=== PATIENT | male | born 1965 | race Caucasian/White ===

== ENCOUNTER 2017-04-26 05:44 | Day surgery (SDC) | payer BC ==
[2017-04-26] MEDS ORDERED: Ketamine HCl 50 MG/ML IV ONE (05:45)
[2017-04-26] MEDS ORDERED: DIPRIVAN 200 MG/20 ML IV ONE (05:45)
[2017-04-26] MEDS ORDERED: Lactated Ringers 1,000 ML IV SCH (07:00)
--- NOTE | 2017-04-26 08:54 | OP ---
SURGERY DATE/TIME: 04/26/2017822 PREOPERATIVE DIAGNOSIS: Screening exam. POSTOPERATIVE DIAGNOSIS: Normal colon. PROCEDURE: Colonoscopy. SURGEON: Dr. Ibrahim. ANESTHESIA: Medications were given by the anesthesia department. HISTORY: The patient is a52 year old white male patient now presenting for screening colonoscopy. The patient was appraised of the risks of the procedure including the risk of perforation, phlebitis, untoward reaction to medication, bleeding or missed lesions. The patient verbalized his understanding and desired to have the procedure performed. DESCRIPTION OF PROCEDURE: The patient was given the medications by the anesthesia department. He had continuous pulse oximetry, ECG monitoring, intermittent blood pressure monitoring and tidal CO2 monitoring during the examination. He was placed in left lateral decubitus position. A digital rectal examination was performed and revealed normal anal sphincter tone, no masses and normal prostate. The flexible Olympus pediatric colonoscope was used to intubate the rectum. A view of the colon was developed sequentially to the cecum. Upon insertion and withdrawal, including a retroflex view in the rectum, no mucosal lesions were encountered. The scope was removed from the patient who tolerated the procedure well and was sent back to OP recovery in good condition. The prep was noted to be fair to at times poor but we were able to adequately evaluate the colon for polyps.
[2017-04-26 09:27] VITALS: O2SAT 98
[2017-04-26 09:32] VITALS: BP 140/98; PULSE 78
== END 2017-04-26 09:35 | disposition home or self-care (01) ==
LOC: SDC 05:44
PROVIDERS: ATTEND Family Medicine
PROC: 0DJD8ZZ Inspection of Lower Intestinal Tract, Via Natural or Artificial Opening Endoscopic (ICD-10-PCS; principal; 2017-04-26)
DX: Z12.11 Encounter for screening for malignant neoplasm of colon (principal); E11.9 Type 2 diabetes mellitus without complications; I10 Essential (primary) hypertension
CPT/HCPCS: 00810; 82962; J2704

== ENCOUNTER 2022-09-28 05:45 | Day surgery (SDC) | payer BC ==
[2022-09-28] MEDS ORDERED: Lactated Ringers 1,000 ML IV SCH (07:00)
[2022-09-28] MEDS ORDERED: DIPRIVAN 200 MG/20 ML IV ONE ×2 (07:51→08:15)
[2022-09-28] MEDS ORDERED: Versed 2 MG/2 ML Injection ONE (07:52)
[2022-09-28] MEDS ORDERED: SUBLIMAZE 100 MCG/2 ML ONE (07:59)
[2022-09-28 09:23] VITALS: BP 138/85; PULSE 65; O2SAT 95
--- NOTE | 2022-09-28 09:37 | OP ---
SURGERY DATE: 09/28/2022 SURGERY TIME: 754 PREOPERATIVE DIAGNOSIS: 1. SCREENING EXAM. 2. HISTORY OF COLON POLYPS. POSTOPERATIVE DIAGNOSIS: 1. NORMAL EXAM. PROCEDURE: 1. Colonoscopy. SURGEON: Dr. Ibrahim. ANESTHESIA: MAC. Medications given by the Anesthesia Department. BRIEF HISTORY: The patient is a 57 y/o WM patient presenting for colonoscopic evaluation. The patient reports previous history of 3 previous colonoscopies, 2 of which had polyps removed. The patient was felt to need to have endoscopic evaluation. He was described the risks of the procedure including the risk of perforation, phlebitis, untoward reaction to medication, bleeding, and missed lesions. The patient verbalized his understanding and desired to have the procedure performed. DESCRIPTION OF PROCEDURE: The patient was given the medications by the Anesthesia Department. He had continuous pulse oximetry, ECG monitoring, and intermittent BP monitoring during the examination. He was placed in the left lateral decubitus position. A digital rectal examination was performed and revealed normal anal sphincter tone and no masses. The flexible Olympus pediatric colonoscope was used to intubate the rectum. A view of the colon was developed sequentially to the cecum. Upon insertion and withdrawal, including a retroflex view in the rectum, no mucosal lesions were encountered. The scope was removed from the patient who tolerated the procedure well and was sent back to OP recovery in good condition. The prep was noted to be fair.
== END 2022-09-28 09:34 | disposition home or self-care (01) ==
LOC: SDC 05:45
PROVIDERS: ATTEND Family Medicine
DX: Z09 Encounter for follow-up examination after completed treatment for conditions other than malignant neoplasm (principal); Z86.010 Personal history of colon polyps; E11.9 Type 2 diabetes mellitus without complications
CPT/HCPCS: 82947; J2250; J2704; J3010

== ENCOUNTER 2024-08-13 16:39 | Emergency (ER) | payer BC ==
[2024-08-13 16:51] VITALS: TEMP 97.4
[2024-08-13] MEDS ORDERED: TORAdol 30 mg Injection ONE (17:31)
[2024-08-13] MEDS: TORAdol 30 mg Injection IV ONE (17:34)
[2024-08-13] MEDS ORDERED: DUONEB 0.5-3 MG/3 ml Neb IH ONE (17:44)
[2024-08-13] MEDS: DUONEB 0.5-3 MG/3 ml Neb IH ONE (17:47)
[2024-08-13 17:59] LABS: Absolute Neutrophil Ct (ANC) 6.75 x10^3/uL (1.78-5.38); BASOPHIL % 0.6 % (0.2-1.2); Basophil (Absolute #) 0.05 x10^3/uL (0.01-0.08); Eosinophil % 0.1 % (0.8-7.0); Eosinophil (Absolute #) 0.01 x10^3/uL (0.04-0.54); Hematocrit 51.2 % (40.1-51.0); Hemoglobin 17.6 g/dL (13.7-17.5); IMMATURE GRAN # 0.19 x10^3u/L (0.001-0.031); IMMATURE GRAN % 2.2 % (0.001-0.429); Lymphocyte (Absolute #) 0.59 x10^3/uL (1.32-3.57); Mean Cell Volume 89.5 fL (79.0-92.2); Mean Corpuscular Hemoglobin 30.8 pg (25.7-32.2); Mean Corpuscular Hgb Concent. 34.4 g/dL (32.3-36.5); Mean Platelet Volume 10.6 fL (9.4-12.4); Monocyte (Absolute #) 0.87 x10^3/uL (0.30-0.82); Monocytes % 10.3 % (5.3-12.2); Neutrophil % 79.8 % (34.0-67.9); Platelet Count 144 x10^3/uL (163-337); Red Blood Count 5.72 x10^6/uL (4.63-6.08); Red Cell Distribution Width 12.9 % (11.6-14.4); White Blood Count 8.5 x10^3/uL (4.23-9.07)
[2024-08-13 18:13] LABS: ALBUMIN 4.6 g/dL (3.5-5.0); ANION GAP 16.8 MEQ/L (5-15); BILIRUBIN,TOTAL 2.1 mg/dL (0.2-1.3); Calcium 8.9 mg/dL (8.4-10.2); Creatinine 1 1.09 mg/dL (0.66-1.25); EST GLOMERULAR FILTRATION RATE 78.7 ML/MIN; MAGNESIUM 1.9 mg/dL (1.6-2.3); Potassium 4.6 mmol/L (3.5-5.1); Total Protein 7.7 g/dL (6.3-8.2)
[2024-08-13] MEDS ORDERED: Sodium Chloride 0.9% 1000 ML 1,000 ML ONE (18:31)
[2024-08-13] MEDS ORDERED: solu-MEDROL ONE (18:31)
[2024-08-13] MEDS ORDERED: Sterile H2O 10 ml IJ ONE (18:31)
[2024-08-13] MEDS: solu-MEDROL 125 MG, Sterile H2O 10 ml 2 ML IV ONE (18:35)
[2024-08-13] MEDS: Sodium Chloride 0.9% 1000 ML 1,000 ML IV STA (18:35)
[2024-08-13 18:39] LABS: INFLUENZA B NEGATIVE (NEGATIVE); RESPIRATORY SYNCTIAL VIRUS NEGATIVE (NEGATIVE); SARS-CoV-2 Xpert Express NEGATIVE (NEGATIVE)
--- NOTE | 2024-08-13 18:39 | ERPHSYRPT ---
- History of Present Illness Time Seen by Provider: 08/13/24 16:41 Source: patient, family Exam Limitations: no limitations Patient Subjective Stated Complaint: PT HERE FOR SOB FOR A COUPLE DAYS NOW, COUGH, ACHES. Triage Nursing Assessment: PT ALERT, WALKED IN, RESP EASY, OCC COUGH, CHEST CLEAR, ABD SOFT, NO EDEMA NOTED, Physician History: 59 years old male presented in the ER with complains of aches and pains all ove r, sinus/nasal congestion, cough productive of yellow-green sputum for the last 2 to 3 days with progressive worsening. Patient is having coughing spells with feeling shortness of breath. Because of repeated coughing having generalized chest soreness and low back pain. Has nausea and dry heaving with no vomiting. had similar symptoms. Does have loose stool as well. Subjective feeling of fever and chills. Allergies/Adverse Reactions: No Known Drug Allergies Allergy (Verified 08/13/24 16:41) Hx Tetanus, Diphtheria Vaccination/Date Given: Yes (UNKNOWN) Hx Influenza Vaccination/Date Given: No Hx Pneumococcal Vaccination/Date Given: No Immunizations Up to Date: Yes Travel Risk - International Travel Have you traveled outside of the country in past 3 weeks: No - Emerging Infectious Disease Are you exhibiting symptoms associated with any current EIDs: Yes Symptoms: Cough: New Onset, Shortness of Breath - Review of Systems Constitutional: Fever, Chills, Fatigue, Weakness Eyes: No Symptoms Ears, Nose, & Throat: Nose Congestion, Throat Swelling Respiratory: Cough Cardiac: No Symptoms Abdominal/Gastrointestinal: Nausea, Diarrhea Genitourinary Symptoms: No Symptoms Musculoskeletal: Back Pain, Myalgias Neurological: Headache Endocrine: No Symptoms Hematologic/Lymphatic: No Symptoms Immunological/Allergic: No Symptoms - Past Medical History Pertinent Past Medical History: Yes Neurological History: TIA ENT History: No Pertinent History Cardiac History: Aneurysm, High Cholesterol, Hypertension Respiratory History: No Pertinent History Endocrine Medical History: Diabetes Type II Musculoskeletal History: No Pertinent History GI Medical History: No Pertinent History History: No Pertinent History Psycho-Social History: No Pertinent History Male Reproductive Disorders: No Pertinent History Other Medical History: 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 - Past Surgical History Past Surgical History: No Neuro Surgical History: No Pertinent History Cardiac: No Pertinent History Respiratory: No Pertinent History Gastrointestinal: No Pertinent History Genitourinary: No Pertinent History Musculoskeletal: No Pertinent History Male Surgical History: No Pertinent History - Social History Smoking Status: Never smoker Exposure to second hand smoke: No Drug Use: none Patient Lives Alone: No - Social Determinants of Health Will the patient participate in the screening: Declined to provide - Nursing Vital Signs Nursing Vital Signs: Initial Vital Signs Temperature 97.4 F 08/13/24 16:49 Pulse Rate 87 08/13/24 16:49 Respiratory Rate 18 08/13/24 16:49 Blood Pressure 190/128 08/13/24 16:49 O2 Sat by Pulse Oximetry 96 08/13/24 16:49 Pain Scale Pain Intensity 4 - Physical Exam General Appearance: no apparent distress, alert Eye Exam: PERRL/EOMI Ears, Nose, Throat Exam: moist mucous membranes, pharyngeal erythema Neck Exam: normal inspection, non-tender, supple, full range of motion Respiratory Exam: normal breath sounds, lungs clear Cardiovascular Exam: regular rate/rhythm, normal heart sounds Gastrointestinal/Abdomen Exam: soft, normal bowel sounds, No tenderness, No rebound Back Exam: normal inspection, normal range of motion Extremity Exam: normal inspection, normal range of motion Neurologic Exam: alert, oriented x 3, cooperative, configuration management consultant II-XII nml as tested Skin Exam: normal color SpO2 Interpretation: normal SpO2: 96 O2 Delivery: Room Air - Course EKG Interpreted by Me: RATE ([id number]), Sinus Rhythm, Left [place] Deviation, NORMAL INTERVALS, NORMAL QRS Ordered Tests: Active Orders 24 hr Category Date Time Status CHEST 1 VIEW (PORTABLE) Stat Exams 08/13/24 16:57 Taken CBC W DIFF Stat Lab 08/13/24 17:39 Completed CMP Stat Lab 08/13/24 18:00 Completed Lactic Acid Stat Lab 08/13/24 17:45 Completed MAGNESIUM Stat Lab 08/13/24 18:00 Completed TROPONIN Q4H Lab 08/13/24 18:00 Completed Respiratory Therapy Assessment DAILY RT 08/13/24 17:50 Completed Medication Summary Discontinued Medications Generic Name Dose Route Start Last Admin Trade Name Freq PRN Reason Stop Dose Admin Albuterol/Ipratropium 3 ml 08/13/24 17:28 08/13/24 17:47 Ipratropium/Albuterol Sulfate 3 Ml Ampul.Neb IH 08/13/24 17:29 3 ml STAT ONE Administration Albuterol/Ipratropium Confirm 08/13/24 17:44 Ipratropium/Albuterol Sulfate 3 Ml Ampul.Neb Administered 08/13/24 17:45 Dose 3 ml IH .STK-MED ONE Methylprednisolone Sodium 0 mg 08/13/24 18:24 08/13/24 18:35 Succinate 125 mg/ Sterile IV 08/13/24 18:25 125 mg Water 2 ml STAT ONE Administration Sodium Chloride 1,000 mls @ 999 mls/hr 08/13/24 18:23 08/13/24 18:35 Sodium Chloride 0.9% 1000 Ml IV 08/13/24 19:23 999 mls/hr .Q1H1M STA Administration Sodium Chloride Confirm 08/13/24 18:31 Sodium Chloride 0.9% 1000 Ml Administered 08/13/24 18:32 Dose 1,000 mls @ ud .ROUTE .STK-MED ONE Ketorolac Tromethamine 30 mg 08/13/24 17:28 08/13/24 17:34 Ketorolac Tromethamine 30 Mg/Ml Inj IV 08/13/24 17:29 30 mg STAT ONE Administration Ketorolac Tromethamine Confirm 08/13/24 17:31 Ketorolac Tromethamine 30 Mg/Ml Inj Administered 08/13/24 17:32 Dose 30 mg .ROUTE .STK-MED ONE Methylprednisolone Sodium Succinate Confirm 08/13/24 18:31 Methylprednis Sod Succ 125 Mg/2 Ml Vial Administered 08/13/24 18:32 Dose 125 mg .ROUTE .STK-MED ONE Oseltamivir Phosphate 75 mg 08/13/24 18:53 08/13/24 18:58 Oseltamivir 75 Mg Cap PO 08/13/24 18:54 75 mg STAT ONE Administration Oseltamivir Phosphate Confirm 08/13/24 18:56 Oseltamivir 75 Mg Cap Administered 08/13/24 18:57 Dose 75 mg PO .STK-MED ONE Sterile Water Confirm 08/13/24 18:31 Water For Injection,Sterile 10 Ml Vial Administered 08/13/24 18:32 Dose 10 ml IJ .STK-MED ONE Lab/Rad Data: Laboratory Result Diagrams 08/13/24 17:39 08/13/24 18:00 Laboratory Results 08/13/24 08/13/24 08/13/24 Range/Units 18:00 18:00 17:56 WBC (4.23-9.07) x10^3/uL RBC (4.63-6.08) x10^6/uL Hgb (13.7-17.5) g/dL Hct (40.1-51.0) % MCV (79.0-92.2) fL MCH (25.7-32.2) pg MCHC (32.3-36.5) g/dL RDW (11.6-14.4) % Plt Count (163-337) x10^3/uL MPV (9.4-12.4) fL Gran % (34.0-67.9) % Immature Gran % (Auto) (0.001-0.429) % Nucleat RBC Rel Count (0.00-0.2) % Eos # (Auto) (0.04-0.54) x10^3/uL Immature Gran # (Auto) (0.001-0.031) x10^3u/L Absolute Lymphs (auto) (1.32-3.57) x10^3/uL Absolute Monos (auto) (0.30-0.82) x10^3/uL Absolute Nucleated RBC (0.00-0.012) x10^3u/L Lymphocytes % (21.8-53.1) % Monocytes % (5.3-12.2) % Eosinophils % (0.8-7.0) % Basophils % (0.2-1.2) % Absolute Granulocytes (1.78-5.38) x10^3/uL Basophils # (0.01-0.08) x10^3/uL Sodium 132 L (135-145) mmol/L Potassium 4.6 (3.5-5.1) mmol/L Chloride 94 L (98-107) mmol/L Carbon Dioxide 26 (22-30) mmol/L Anion Gap 16.8 H (5-15) MEQ/L BUN 14 (9-20) mg/dL Creatinine 1.09 (0.66-1.25) mg/dL Estimated GFR 78.7 ML/MIN Glucose 248 H (74-106) mg/dL Lactic Acid (0.4-2.0) Calcium 8.9 (8.4-10.2) mg/dL Magnesium 1.9 (1.6-2.3) mg/dL Total Bilirubin 2.10 H (0.2-1.3) mg/dL AST 74 H (17-59) U/L ALT 61 H (0-50) U/L Alkaline Phosphatase 65 (38-126) U/L Troponin I < 0.012 (0.000-0.033) ng/mL Serum Total Protein 7.7 (6.3-8.2) g/dL Albumin 4.6 (3.5-5.0) g/dL Influenza Type A Ag POSITIVE A (NEGATIVE) Influenza Type B Ag NEGATIVE (NEGATIVE) RSV (PCR) NEGATIVE (NEGATIVE) SARS-CoV-2 (PCR) NEGATIVE (NEGATIVE) 08/13/24 08/13/24 Range/Units 17:45 17:39 WBC 8.5 (4.23-9.07) x10^3/uL RBC 5.72 (4.63-6.08) x10^6/uL Hgb 17.6 H (13.7-17.5) g/dL Hct 51.2 H (40.1-51.0) % MCV 89.5 (79.0-92.2) fL MCH 30.8 (25.7-32.2) pg MCHC 34.4 (32.3-36.5) g/dL RDW 12.9 (11.6-14.4) % Plt Count 144 L (163-337) x10^3/uL MPV 10.6 (9.4-12.4) fL Gran % 79.8 H (34.0-67.9) % Immature Gran % (Auto) 2.2 H (0.001-0.429) % Nucleat RBC Rel Count 0.0 (0.00-0.2) % Eos # (Auto) 0.01 L (0.04-0.54) x10^3/uL Immature Gran # (Auto) 0.19 H (0.001-0.031) x10^3u/L Absolute Lymphs (auto) 0.59 L (1.32-3.57) x10^3/uL Absolute Monos (auto) 0.87 H (0.30-0.82) x10^3/uL Absolute Nucleated RBC 0.00 (0.00-0.012) x10^3u/L Lymphocytes % 7.0 L (21.8-53.1) % Monocytes % 10.3 (5.3-12.2) % Eosinophils % 0.1 L (0.8-7.0) % Basophils % 0.6 (0.2-1.2) % Absolute Granulocytes 6.75 H (1.78-5.38) x10^3/uL Basophils # 0.05 (0.01-0.08) x10^3/uL Sodium (135-145) mmol/L Potassium (3.5-5.1) mmol/L Chloride (98-107) mmol/L Carbon Dioxide (22-30) mmol/L Anion Gap (5-15) MEQ/L BUN (9-20) mg/dL Creatinine (0.66-1.25) mg/dL Estimated GFR ML/MIN Glucose (74-106) mg/dL Lactic Acid 2.2 H (0.4-2.0) Calcium (8.4-10.2) mg/dL Magnesium (1.6-2.3) mg/dL Total Bilirubin (0.2-1.3) mg/dL AST (17-59) U/L ALT (0-50) U/L Alkaline Phosphatase (38-126) U/L Troponin I (0.000-0.033) ng/mL Serum Total Protein (6.3-8.2) g/dL Albumin (3.5-5.0) g/dL Influenza Type A Ag (NEGATIVE) Influenza Type B Ag (NEGATIVE) RSV (PCR) (NEGATIVE) SARS-CoV-2 (PCR) (NEGATIVE) - Progress Progress: improved, re-examined Air Movement: good Progress Note: 08/13/24 19:35 59 years old is evaluated in the ER for flulike symptoms. EKG is normal sinus rhythm with no ST elevation. He is given Toradol for symptomatic relief. Chest x-ray no obvious infiltrate reviewed by me, questionable opacity in the left lower lobe, official report is pending. Normal white count, chemistries with a glucose of 246, elevated transaminases and total bili of 2. 1 and a lactate of 2.2 and a gap of 16. He is given fluids and feeling much better on reevaluation. Patient is positive influenza A and started on Tamiflu along with a dose of Solu-Medrol Has negative troponins. I believe patient's symptoms are viral etiology from influenza A, do not think it is cardiac etiology and do not think it needs any other workup and is stable for discharge. Discussed signs symptoms of worsening needing return to ER which he seems understanding.. Blood Culture(s) Obtained: No Antibiotics given: No Counseled pt/family regarding: lab results, diagnosis, need for follow-up, rad results Medical Desision Making - Independent Historian Additional History obtained from: Spouse - Diagnostic Testing Diagnostic test were ordered, analyzed, and reviewed by me: Yes Radiological Interpretation: Interpreted by me, Reviewed by me - Risk of complications The pt has a mod risk of morbidity or mortality based on: Need for prescription drug management - Departure Departure Disposition: Home Clinical Impression: Influenza A, Viral syndrome Condition: Stable Critical Care Time: No Referrals: SEFERINO MENDOZA [Primary Care Provider] - Follow up with PCP 1 day Instructions: Flu in adults - ED discharge instructions Additional Instructions: Drink plenty of fluids. Take Tylenol/ibuprofen as needed. Follow-up with primary care for reevaluation. Return to ER for any worsening. Prescriptions: Albuterol Sulfate [Albuterol Sulfate Hfa] 8.5 gm IH Q6H PRN 7 Days #1 inh PRN Reason: Cough Oseltamivir 75 mg [Tamiflu 75MG Capsule] 75 mg PO BID #10 cap
[2024-08-13 18:48] LABS: INFLUENZA A POSITIVE (NEGATIVE)
[2024-08-13] MEDS ORDERED: Tamiflu 75MG Capsule PO ONE (18:56)
[2024-08-13] MEDS: Tamiflu 75MG Capsule PO ONE (18:58)
[2024-08-13 19:39] VITALS: O2SAT 96
[2024-08-13 20:15] VITALS: BP 138/99; PULSE 98; RESP 16
--- NOTE | 2024-08-14 08:46 | XRAY ---
Indication: Short of breath. Comparison: April 15, 2015 Portable apical lordotic chest again demonstrates minimal left base subsegmental atelectasis/scarring. Remaining heart and lungs unremarkable. Bony thorax intact again with mild degenerative changes. No acute findings.
== END 2024-08-13 20:13 | disposition home or self-care (01) ==
LOC: ED 16:39
DX: J10.1 Influenza due to other identified influenza virus with other respiratory manifestations (principal); R05.1 Acute cough; M79.10 Myalgia, unspecified site; R11.2 Nausea with vomiting, unspecified; E78.5 Hyperlipidemia, unspecified; I10 Essential (primary) hypertension; E11.9 Type 2 diabetes mellitus without complications; Z79.899 Other long term (current) drug therapy
CPT/HCPCS: 0241U; 36415; 71045; 80053; 83605; 83735; 84484; 85025; 93005; 94640; 96374; 96375; 99284; J1885; J2919; A9270-GY

== ENCOUNTER 2024-11-10 08:42 | Day surgery (SDC) | payer BC ==
[2024-11-10] MEDS ORDERED: CEFAZOLIN 2 GM/100 ML NaCl 2 GM/100 ML IVPB IV ONE (08:51)
[2024-11-10] MEDS ORDERED: Lactated Ringers 1,000 ML IV ONE (08:51)
[2024-11-10] MEDS: CEFAZOLIN 2 GM/100 ML NaCl 2 GM/100 ML IVPB IV SCH (08:55)
[2024-11-10] MEDS: Lactated Ringers 1,000 ML IV SCH (08:55)
[2024-11-10 09:16] VITALS: RESP 18
[2024-11-10 09:23] LABS: Absolute Neutrophil Ct (ANC) 5.31 x10^3/uL (1.78-5.38); Basophil (Absolute #) 0.08 x10^3/uL (0.01-0.08); Eosinophil % 2.7 % (0.8-7.0); Eosinophil (Absolute #) 0.22 x10^3/uL (0.04-0.54); Hematocrit 43.8 % (40.1-51.0); Hemoglobin 15.2 g/dL (13.7-17.5); IMMATURE GRAN # 0.11 x10^3u/L (0.001-0.031); IMMATURE GRAN % 1.4 % (0.001-0.429); Lymphocyte (Absolute #) 1.64 x10^3/uL (1.32-3.57); Lymphocytes % 20.2 % (21.8-53.1); Mean Cell Volume 88.5 fL (79.0-92.2); Mean Corpuscular Hemoglobin 30.7 pg (25.7-32.2); Mean Corpuscular Hgb Concent. 34.7 g/dL (32.3-36.5); Mean Platelet Volume 9.9 fL (9.4-12.4); Monocyte (Absolute #) 0.76 x10^3/uL (0.30-0.82); Monocytes % 9.4 % (5.3-12.2); Neutrophil % 65.3 % (34.0-67.9); Platelet Count 228 x10^3/uL (163-337); Red Blood Count 4.95 x10^6/uL (4.63-6.08); Red Cell Distribution Width 12.2 % (11.6-14.4); White Blood Count 8.1 x10^3/uL (4.23-9.07)
[2024-11-10 09:37] LABS: ALBUMIN 4.3 g/dL (3.5-5.0); ANION GAP 16.3 MEQ/L (5-15); BILIRUBIN,TOTAL 1.3 mg/dL (0.2-1.3); Calcium 9.5 mg/dL (8.4-10.2); Creatinine 1 0.93 mg/dL (0.66-1.25); EST GLOMERULAR FILTRATION RATE 95.2 ML/MIN; Potassium 4.1 mmol/L (3.5-5.1); Total Protein 7.7 g/dL (6.3-8.2)
[2024-11-10] MEDS ORDERED: Xylocaine 1% Vial 30 ML PF IJ ONE (11:06)
[2024-11-10] MEDS ORDERED: Marcaine Mpf 0.5% Vial 30 Ml ONE (11:06)
[2024-11-10] MEDS ORDERED: SUBLIMAZE 100 MCG/2 ML ONE (11:12)
[2024-11-10] MEDS ORDERED: Versed 2 MG/2 ML Injection ONE (11:12)
[2024-11-10] MEDS ORDERED: propofoL IV ONE ×3 (11:12→11:42)
[2024-11-10 12:57] VITALS: PULSE 73; TEMP 97.4; O2SAT 97
[2024-11-10 13:20] VITALS: BP 143/77
--- NOTE | 2024-11-11 09:08 | OP ---
SURGERY DATE/TIME: 11/10/2024 [id number] PREOPERATIVE DIAGNOSES: 1) Osteomyelitis, 2nd left digit. 2) Osteomyelitis, 2nd metatarsal head. 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 4) Diabetes mellitus, controlled. POSTOPERATIVE DIAGNOSES: 1) Osteomyelitis, 2nd left digit. 2) Osteomyelitis, 2nd metatarsal head. 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 4) Diabetes mellitus, controlled. PROCEDURE: Amputation of 2nd digit, left foot, with partial metatarsal head resection. SURGEON: Mike Lofton MD. TRANSITIONS RN CARE COORDINATOR: Jessy Lara, Student Surgical Wheel Borer. ANESTHESIA: MAC plus postop metatarsal block. HEMOSTASIS: Pressure dressing. ESTIMATED BLOOD LOSS: Approximately 5 mL. MATERIALS: 3-0 nylon, 1/4-inch iodoform packing. INJECTABLES: 10 mL of 1:1 mixture of 1% lidocaine plain and 0.5% bupivacaine plain injected in a metatarsal block-type fashion to the left foot 2nd metatarsal. INDICATION FOR PROCEDURE: The patient is a very pleasant 59-year-old male who presented to my service with concerns over an infected digit of the 2nd toe. Patient did have a positive probe to bone as well as degenerative changes of the joint on x-ray. An MRI was obtained demonstrating diffuse bone marrow edema with T2 uptake and dropout on T1 extending all the way to the 2nd metatarsal head. Discussion was held with the patient in regard to options. Patient recommended a second opinion for which patient went and saw second opinion yesterday who urged him to proceed with the original plan of amputation. Patient has been made aware of all risks, complications, and benefits of surgical intervention at this time including, but not limited to, infection, hematoma, seroma, possibility of delayed wound healing, non-wound healing, possibility of failure of surgical intervention, possible need for further surgical intervention at a later date. No guarantees were provided as to the outcome. It is noted that this is an osteomyelitis case with an active acute osteomyelitis and we will be leaving the wound open at this time and assessing with clean margins. Once this occurs, we will proceed for a second stage to this procedure for closure and possible bone debridement. Plenty of time was allowed for the patient to ask questions which were answered to his apparent satisfaction, as well as his . It is at this time we decided to proceed. DESCRIPTION OF PROCEDURE AND FINDINGS: Patient was brought into the operating room and placed on the operating room table in the supine position. At this time, monitored anesthesia care was administered until the patient was adequately sedated. The left lower extremity was prepped and draped in the typical sterile fashion and lowered onto the surgical field. At this time, a dorsal and plantar racquet-type incision was made to save as much skin at the base of the toe. A towel clamp was utilized to secure the toe and then a 10 blade was utilized to make a full-thickness incision all the way down to the bone encircling the dorsal and plantar racquet incisions. Once this was performed, disarticulation of the 2nd MPJ took place. Following this, a small resection of the articular cartilage of the metatarsal head was then taken for clean margins and to assess for pathological presence of osteomyelitis. At this time, 1000 mL of Bactisure was utilized to flush the site and then 1000 mL of sterile saline were utilized to clean once again. A 3-0 nylon was then utilized to coapt the dorsal and plantar aspects of the incision; 1/4-inch iodoform packing was then packed into the opening. A dressing consisting of Betadine, Adaptic, 4 x 4, Kerlix, ABD, and Stephen was applied to the patient's left lower extremity. Patient was then reversed from anesthesia and returned to the postoperative anesthesia care unit with vital signs stable and vascular status intact. Patient handled the anesthesia as well as the procedure without significant complication. Postoperative orders as indicated in the patient's discharge chart.
== END 2024-11-10 13:36 | disposition home or self-care (01) ==
LOC: SDC 08:42
PROVIDERS: ATTEND Podiatrist Foot & Ankle Surgery
DX: M86.9 Osteomyelitis, unspecified (principal); E11.42 Type 2 diabetes mellitus with diabetic polyneuropathy
CPT/HCPCS: 28810; 36415; 80053; 83036; 85025; 87070; 87075; 93005; A6260; J0690; J2250; J2704; J3010

== ENCOUNTER 2024-11-17 08:25 | Day surgery (SDC) | payer BC ==
[2024-11-17] MEDS ORDERED: Lactated Ringers 1,000 ML IV ONE (08:55)
[2024-11-17] MEDS ORDERED: CEFAZOLIN 2 GM/100 ML NaCl 2 GM/100 ML IVPB IV ONE (08:55)
[2024-11-17 09:22] VITALS: RESP 16
[2024-11-17] MEDS: Lactated Ringers 1,000 ML IV SCH (09:23)
[2024-11-17] MEDS: CEFAZOLIN 2 GM/100 ML NaCl 2 GM/100 ML IVPB IV SCH (09:27)
[2024-11-17 09:30] LABS: Hematocrit 42.1 % (40.1-51.0); Hemoglobin 14.4 g/dL (13.7-17.5); Mean Cell Volume 88.6 fL (79.0-92.2); Mean Corpuscular Hemoglobin 30.3 pg (25.7-32.2); Mean Corpuscular Hgb Concent. 34.2 g/dL (32.3-36.5); Mean Platelet Volume 10.2 fL (9.4-12.4); Platelet Count 231 x10^3/uL (163-337); Red Blood Count 4.75 x10^6/uL (4.63-6.08); White Blood Count 7.3 x10^3/uL (4.23-9.07)
[2024-11-17 09:46] LABS: ANION GAP 15.8 MEQ/L (5-15); BILIRUBIN,TOTAL 1.3 mg/dL (0.2-1.3); Calcium 9.5 mg/dL (8.4-10.2); Creatinine 1 0.95 mg/dL (0.66-1.25); EST GLOMERULAR FILTRATION RATE 92.8 ML/MIN; Total Protein 7.6 g/dL (6.3-8.2)
[2024-11-17 09:47] LABS: Potassium 4.4 mmol/L (3.5-5.1)
[2024-11-17] MEDS ORDERED: Versed 2 MG/2 ML Injection ONE (09:53)
[2024-11-17] MEDS ORDERED: SUBLIMAZE 100 MCG/2 ML ONE (09:53)
[2024-11-17] MEDS ORDERED: Xylocaine-Mpf 2% 5 Ml Vial ONE (09:53)
[2024-11-17] MEDS ORDERED: propofoL IV ONE ×2 (09:53)
[2024-11-17] MEDS ORDERED: Marcaine Mpf 0.5% Vial 30 Ml ONE (09:56)
[2024-11-17] MEDS ORDERED: Xylocaine 1% Vial 30 ML PF IJ ONE (09:56)
[2024-11-17] MEDS ORDERED: Sodium Chloride 0.9% 1000 ML 1,000 ML ONE (10:23)
[2024-11-17 11:36] VITALS: TEMP 97.2
[2024-11-17 11:54] VITALS: BP 163/97; PULSE 70; O2SAT 97
--- NOTE | 2024-11-18 07:23 | OP ---
SURGERY DATE/TIME: 11/17/2024 [id number] PREOPERATIVE DIAGNOSES: 1) Osteomyelitis 2nd digit and 2nd metatarsal head. 2) Diabetic peripheral neuropathy. 3) Diabetes mellitus, controlled. 4) Diabetic foot ulcer. POSTOPERATIVE DIAGNOSES: 1) Osteomyelitis 2nd digit and 2nd metatarsal head. 2) Diabetic peripheral neuropathy. 3) Diabetes mellitus, controlled. 4) Diabetic foot ulcer. PROCEDURES: 1) Incision and drainage with debridement to level of bone, left foot. 2) Delayed primary closure. SURGEON: Mike Lofton DPM. ASSISTANTS: BRENNON Jj and FRAN Le. ANESTHESIA: Monitored anesthesia care. HEMOSTASIS: Pressure dressing. ESTIMATED BLOOD LOSS: Approximately 10 mL. MATERIALS: 4-0 Monocryl, 3-0 nylon. INJECTABLES: None. Patient is neuropathic. INDICATIONS: This is a 2nd stage and hopefully final stage of an initial index procedure where patient had a significantly acute osteomyelitis localized to the 2nd proximal interphalangeal joint of the left foot. An MRI was obtained demonstrating some changes to the metatarsal head with dropout on T1 as well as uptake on T2, indicative of osteomyelitis in this clinical setting. From that standpoint, decision was made to proceed with amputation of the 2nd digit and partial metatarsal amputation. We are still awaiting pathology, however, soft tissue cultures are demonstrating a fairly resisting strain of Enterobacter cloacae. From that standpoint, patient is on oral antibiotics at the time and waiting bone surgical path to return before definitive decision for IV antibiotics. From that standpoint, patient has been made aware of all risks, complications, and benefits of surgical intervention at this time including, but not limited to, infection, hematoma, seroma, possibility of delayed wound healing, non-wound healing, and possible need for further surgical intervention at a later date. No guarantees were provided as to the outcome of surgical intervention. Plenty of time was allowed for the patient to ask questions which were answered to his apparent satisfaction. It is at this time we decided to proceed. DESCRIPTION OF PROCEDURE AND FINDINGS: Patient was brought into the operating room, placed on the operating room table in the supine position. At this time, monitored anesthesia care was administered until the patient was adequately sedated. The left lower extremity was prepped and draped in the typical sterile fashion and lowered onto the surgical field. At this time, attention was directed to the 2nd digit amputation site where sutures were removed. The partially healed site was incised utilizing a 15 blade down to the level of bone. At this time, copious amounts of debridement was performed utilizing a combination of a 15 blade, pickup, rongeurs, and curettes. Any necrotic and nonviable tissue was then removed down to the level of the 2nd metatarsal head where the bone quality was assessed and once again, there was fairly soft bone quality. Decision was made at this time to proceed with bone debridement as well as removal of the portion of the metatarsal head at minimum for clean margins, however, for partial resection of any remaining bone infection. From that standpoint, once removed, this was handed off the field for both culture and path purposes, and one was sent for permanent and the other was sent for microbiological assessment. At this time, 1 L of sterile saline was utilized to flush the surgical site under Pulsavac. The margins of the wound were incised and healthy bleeding was seen on each edge. A 4-0 Monocryl was utilized to coapt the subcutaneous skin edges in a simple interrupted buried-type fashion and then 3-0 nylon was utilized in a horizontal mattress-type fashion to coapt the subcutaneous skin edges. Following this, a dressing consisting of Betadine, Adaptic, 4 x 4, Kerlix, ABD, and Stephen was applied to the patient's left lower extremity. Patient was reversed from anesthesia and returned to the postoperative anesthesia care unit with vital signs stable and vascular status intact. Patient handled the anesthesia as well as the procedure without significant complication. Postoperative orders as indicated in the patient's discharge chart.
== END 2024-11-17 12:05 | disposition home or self-care (01) ==
LOC: SDC 08:25
PROVIDERS: ATTEND Podiatrist Foot & Ankle Surgery
DX: M86.9 Osteomyelitis, unspecified (principal); E11.42 Type 2 diabetes mellitus with diabetic polyneuropathy; E11.621 Type 2 diabetes mellitus with foot ulcer
CPT/HCPCS: 13160; 28005; 36415; 80053; 82947; 85027; 87046; 87070; 87075; 87116; 87205; 87206; 93005; J0690; J2250; J2704; J3010